=== PATIENT | male | born 1995 | race American Indian/Alaskan Native ===

== ENCOUNTER 2018-05-15 07:48 | Emergency (ER) | payer SELFPAY ==
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
== END 2018-05-15 09:50 ==
LOC: JP.ED 07:48
DX: S13.4XXA Sprain of ligaments of cervical spine, initial encounter (principal); F17.210 Nicotine dependence, cigarettes, uncomplicated; V89.2XXA Person injured in unspecified motor-vehicle accident, traffic, initial encounter
CPT/HCPCS: 72125; 80305-QW; 81001; 99283; 99285-25